=== PATIENT | female | born 1960 | race African-American/Black ===

== ENCOUNTER → 2017-04-20 | Day surgery (SDC) | payer BC ==
[~2017-04-20] MED LIST: MULTI VITAMIN1 EACH PO
--- NOTE | ~2017-04-20 | EKG ---
PATIENT: VIVIEN HELM UNIT #: [id number] Ventricular Rate: 61 BPM Atrial Rate: 61 BPM P-R Interval: 176 ms QRS Duration: 72 ms Q-T Interval: 432 ms QTC Calculation(Bezet): 434 ms P Mcclure: 40 degrees Calculated R Mcclure: -6 degrees Calculated T Mcclure: 31 degrees Diagnosis Line: Normal sinus rhythm with sinus arrhythmia Diagnosis Line: Minimal voltage criteria for LVH, may be normal Diagnosis Line: variant Diagnosis Line: Borderline ECG Diagnosis Line: No previous ECGs available Diagnosis Line: Confirmed by JEWELL HANKS MD ([id number]) on 04/20/2017 Diagnosis Line: 8:39:53 PM INTERPRETING MD: DEMARIO LING
--- NOTE | ~2017-04-20 | OR ---
Unit #: [id number] #: [id number] Patient: VIVIEN HELM X Kim Collazo PROCEDURE OPERATIVE NOTE
[2017-04-20 11:48] LABS: BASOPHIL% 0.9 % (0-2.5); EOSINOPHIL# 0.1 X10e3 (0-0.7); EOSINOPHIL% 2.1 % (0.0-7.0); HEMATOCRIT 38.6 % (35.0-45.0); HEMOGLOBIN 11.8 gm/dL (12.0-16.0); LYMPHOCYTE# 1.9 X10e3 (1.0-3.5); LYMPHOCYTE% 65.1 % (17.0-45.0); MEAN CELL VOLUME 74.8 FL (83-96); MEAN CORPUSCULAR HEMOGLOBIN 22.9 PG (28-34); MEAN CORPUSCULAR HGB CONC 30.6 g/dL (30-36); MONOCYTE# 0.1 X10e3 (0-1.0); NEUTROPHIL# 0.8 X10e3 (1.5-7.1); NEUTROPHIL% 26.7 % (40-75); PLATELET COUNT 188 X10e3 (140-420); RED BLOOD COUNT 5.15 X10e (3.90-5.30); RED CELL DISTRIBUTION WIDTH 14.3 % (11.0-15.5); WHITE BLOOD COUNT 2.9 X10e3 (4.0-10.5)
[2017-04-20 11:50] LABS: DIFF IND YES; MONOCYTE% 5.3 % (3.0-12.0)
[2017-04-20 12:05] LABS: BUN/CREATININE RATIO 11.25; CALCIUM SERUM 9.2 mg/dL (8.4-10.2); CREATININE SERUM 0.8 mg/dL (0.6-1.4); GLOM FILT RATE Estimated 96.3 mL/min (>60); POTASSIUM 3.9 mmol/L (3.5-5.1)
[2017-04-20 12:28] LABS: PLATELET ESTIMATE NORMAL (NORMAL)
[2017-04-20 12:29] LABS: ANISOCYTOSIS SL; HYPOCHROMIA SL
== END | disposition home or self-care (01) ==
LOC: CSUR 10:54
PROVIDERS: Podiatrist Foot & Ankle Surgery
DX: M20.11 Hallux valgus (acquired), right foot (principal)
CPT/HCPCS: 80048; 85025; 93005; C1713; J0690; J2250; J2405; J3010; J3301